=== PATIENT | male | born 1960 | race Caucasian/White ===

== ENCOUNTER 2024-09-16 10:57 | Emergency (ER) | payer OTHER, SELFPAY ==
[2024-09-16 11:19] VITALS: BP 131/69
--- NOTE | 2024-09-16 11:23 | ED.GENMED ---
ED Provider Triage
<Luis Alfredo Duncan PA-C - Last Filed: 09/16/24 11:24>
-
Patient seen by provider in Triage?: Seen in Triage
63 yo male presents with cough and congestion, + ill contacts at home. No fever. Recent COVID infection 2 mos ago.
Looks well, afebrile, no distress.
Check COVID/Flu, CXR
History of Present Illness
<Luis Alfreod Duncan PA-C - Last Filed: 09/16/24 11:24>
General
Chief Complaint: Cold/Flu/URI Symptoms
Time Seen by Provider: 09/16/24 11:46
<Tenzin Rolon Jr., PA-C - Last Filed: 09/16/24 12:48>
General
Source: patient
Exam Limitations: none
Nursing documentation reviewed up to this point in time: agreed with
History of Present Illness
History of Present Illness:
63-year-old male past medical history of hypertension hyperlipidemia presenting to the emergency department today with concerns of upper respiratory symptoms over the past few days also felt lightheaded today and almost passed out but did not fully
lose consciousness or sustain any trauma. Mainly cough and nasal congestion at this point.
Past History
<Luis Alfredo Duncan PA-C - Last Filed: 09/16/24 11:24>
Past History
ED Past Medical History: HTN and Hypercholesterolemia
ED Past Surgical History: None
Social History
Tobacco: Non-smoker
Personal:
Living: with family
Review of Systems
<Tenzin Rolon Jr., PA-C - Last Filed: 09/16/24 12:48>
Review of Systems
Allergies reviewed?: Yes
All Other Systems: ROS reviewed and negative except as documented in HPI and ROS
Phy Exam
<Tenzin Rolon Jr., PA-C - Last Filed: 09/16/24 12:48>
Physical Exam
Physical Exam:
GENERAL: Alert , in no apparent distress
EYE: pupils equal and reactive
NECK: Supple, no significant adenopathy.
ENT: Swollen boggy nasal turbinates o/p clr, mmm.
CARDIAC: Regular rate and rhythm .
LUNGS: Clear breath sounds bilaterally, no acute respiratory distress, no wheezes/rales/rhonchi
ABDOMEN: Soft, without focal tenderness, no r/g, no cvat
NEUROLOGICAL: Alert and oriented, no focal neuro deficits
SKIN: Warm and dry, skin intact.
MUSCULOSKELETAL: No edema, well perfused.
PSYCH: Normal and appropriate interaction.
Course
<Luis Alfredo Duncan PA-C - Last Filed: 09/16/24 11:24>
Orders/Labs/Results
Orders:
Orders
09/16/24 11:21
ECG [Electrocardiogram (*1)] Urgent
Reason for Study: Vertigo / Dizzy
EKG- Treatment ONCE
CR Chest - 2 Views Urgent
Comment:
Reason For Exam: cough
09/16/24 11:24
COVID-19 Antigen Urgent
Source: Nasal Swab
Influenza A+B Rapid Molecular Urgent
BRANDON Source: Nasal Swab
Specimen Description:
09/16/24 12:18
CBC/With Diff [Complete Blood Count/With Diff] Urgent
CMP [Comprehensive Metabolic Panel] Urgent
Abnormal Lab Results
09/16/24
12:18
WBC 2.6 L 10^3/uL
(4.8-10.8)
Absolute Lymphs (auto) 0.6 L 10^3/uL
(1.2-3.4)
Monocytes % 16.4 H %
(1.7-9.3)
Sodium 130 L mmol/L
(135-145)
Glucose 130 H mg/dl
(70-99)
Total Protein 6.0 L g/dl
(6.3-8.2)
09/16/24 12:18
09/16/24 12:18
Vital Signs
Initial and Last Documented VS:
Initial Vital Signs
Temp Pulse Resp BP Pulse Ox
97.4 F 82 20 131/69 96
09/16/24 11:19 09/16/24 11:19 09/16/24 11:19 09/16/24 11:19 09/16/24 11:19
Last Documented Vital Signs
Temp Pulse Resp BP Pulse Ox
97.4 F 82 20 131/69 96
09/16/24 11:19 09/16/24 11:19 09/16/24 11:19 09/16/24 11:19 09/16/24 11:19
<Tenzin Rolon Jr., PA-C - Last Filed: 09/16/24 12:48>
Orders/Labs/Results
Orders:
Orders
09/16/24 11:21
ECG [Electrocardiogram (*1)] Urgent
Reason for Study: Vertigo / Dizzy
EKG- Treatment ONCE
CR Chest - 2 Views Urgent
Comment:
Reason For Exam: cough
09/16/24 11:24
COVID-19 Antigen Urgent
Source: Nasal Swab
Influenza A+B Rapid Molecular Urgent
BRANDON Source: Nasal Swab
Specimen Description:
09/16/24 12:18
CBC/With Diff [Complete Blood Count/With Diff] Urgent
CMP [Comprehensive Metabolic Panel] Urgent
Abnormal Lab Results
09/16/24
12:18
WBC 2.6 L 10^3/uL
(4.8-10.8)
Absolute Lymphs (auto) 0.6 L 10^3/uL
(1.2-3.4)
Monocytes % 16.4 H %
(1.7-9.3)
Sodium 130 L mmol/L
(135-145)
Glucose 130 H mg/dl
(70-99)
Total Protein 6.0 L g/dl
(6.3-8.2)
09/16/24 12:18
09/16/24 12:18
Vital Signs
Initial and Last Documented VS:
Initial Vital Signs
Temp Pulse Resp BP Pulse Ox
97.4 F 82 20 131/69 96
09/16/24 11:19 09/16/24 11:19 09/16/24 11:19 09/16/24 11:19 09/16/24 11:19
Last Documented Vital Signs
Temp Pulse Resp BP Pulse Ox
97.4 F 82 20 131/69 96
09/16/24 11:19 09/16/24 11:19 09/16/24 11:19 09/16/24 11:19 09/16/24 11:19
<Tenzin Rolon Jr., PA-C - Last Filed: 09/16/24 12:48>
MDM/Problems Addressed
MDM/Problems Addressed:
63-year-old male presenting to the emergency department today with concerns of upper respiratory symptoms over the past 4 days also felt lightheaded earlier today. Vital signs on arrival are normal labs unremarkable other than slightly low sodium
level. Chest x-ray assessed by me normal EKG without emergent features read by me patient was positive for influenza which does explain symptoms advised for rest over the next few days with hopeful improvement. Return precautions given.
<Tenzin Rolon Jr., PA-C - Last Filed: 09/16/24 12:48>
*Critical Care Note
Total Time (30-74mins, 75-104mins- exclusive of procedures): Not Applicable
ED Attending Note
<Luis Alfredo Duncan PA-C - Last Filed: 09/16/24 11:24>
-
Portions of this chart may have been created with voice recognition software.� Occasional wrong word or��sound alike� substitutions may have occurred due to the inherent limitations of voice recognition software.
Discharge Plan
Departure
Patient Disposition: Home (Routine Discharge)
Date of Disposition: 09/16/24
Time of Disposition: 12:46
Patient with high blood pressure during this ER visit?: No
Condition: Good
Covid-19: Not Applicable
Discharge Problem:
Influenza
Instructions: Viral Syndrome (DC)
Prescriptions:
No Action
atorvastatin 20 MG tablet
20 mg PO DAILY
lisinopril 20 MG tablet
20 mg PO DAILY
fexofenadine [Jessie] 180 MG tablet
180 mg PO DAILYPRN PRN (Reason: allergy symptoms)
doxazosin [Cardura] 8 MG tablet
8 mg PO DAILY
naproxen sodium [Aleve] 220 MG tablet
440 mg PO BIDPRN PRN (Reason: pain) Qty: 1 0RF
tramadol 50 MG tablet
50 mg PO TIDPRN PRN (Reason: severe pain) Qty: 15 0RF
Referrals:
Kilo Du DO [Family Provider] -
Activity Restrictions/Additional Instructions:
You came to the emergency department today with concerns of viral syndrome. Here you had a slightly low sodium level please make sure you are drinking plenty of electrolyte solution and plenty of rest follow-up closely with the primary care doctor.
Return to the emergency department for any worsening, new or concerning symptoms.
Interventions
Interventions:
*General Assessment Last Done: 09/16/24 11:19
ED- Pulmonary Assessment Last Done: 09/16/24 12:21
Discharge Date and Time
Print Language: SERBIAN
[2024-09-16 11:53] LABS: COVID-19 Antigen Negative (Negative)
[2024-09-16 12:33] LABS: % Basophils 0.4 % (0-2); % Eosinophils 0.8 % (0-6); % Immature Granulocytes 0.4 % (0-0.5); % Lymphocytes 21.8 % (20.5-51.1); % Monocytes 16.4 % (1.7-9.3); % Neutrophils 60.2 % (42.2-75.2); Absolute Lymphocytes 0.6 10^3/uL (1.2-3.4); Absolute Monocytes 0.4 10^3/uL (0.1-0.6); Absolute Neutrophils 1.6 10^3/uL (1.4-6.5); Mean Corpuscular Hgb 29.8 pg (27.0-31.0); Mean Corpuscular Volume 85.1 fL (80.0-94.0); Nucleated Red Blood Cells % 0 % (-); Red Cell Dist. Width 12.4 % (11.5-14.5); White Blood Cell Count 2.6 10^3/uL (4.8-10.8)
[2024-09-16 12:40] LABS: ALT (SGPT) 25 U/L (0-50); AST (SGOT) 24 U/L (17-59); Albumin 3.8 g/dl (3.5-5.0); Alkaline Phosphatase 43 U/L (38-126); Blood Urea Nitrogen 18 mg/dl (9-20); Calcium 8.6 mg/dl (8.4-10.2); Carbon Dioxide 24 mmol/L (22-30); Chloride 98 mmol/L (98-107); Glucose 130 mg/dl (70-99); Potassium 3.7 mmol/L (3.5-5.1); Sodium 130 mmol/L (135-145); Total Bilirubin 0.5 mg/dl (0.2-1.3); eGFR > 60.00
[2024-09-16 12:55] VITALS: BP 117/72
[2024-09-16 12:57] LABS: Mean Platelet Volume 10.5 fL (7.4-10.4); Platelet Count 93 10^3/uL (130-400)
== END 2024-09-16 12:56 | disposition home or self-care (01) ==
LOC: EMR 10:57
PROVIDERS: Physician Assistant; EMERGENCY PHYSICIAN Emergency Medicine; FAMILY PHYSICIAN Family Medicine
DX: J10.1 Influenza due to other identified influenza virus with other respiratory manifestations (principal); E87.1 Hypo-osmolality and hyponatremia; I10 Essential (primary) hypertension; E78.00 Pure hypercholesterolemia, unspecified
CPT/HCPCS: 99285; 71046; 80053; 85025; 87502; 87811; 93005